=== PATIENT | female | born 1975 | race Two or more races ===

== ENCOUNTER 2020-03-27 20:43 | Emergency (ER) | payer OTHER ==
[~2020-03-27] VITALS: Ht 160 cm; Wt 82.6 kg
[2020-03-27 21:56] VITALS: BP 132/94
== END 2020-03-28 00:34 | disposition left against medical advice (07) ==
LOC: ER 20:43
DX: J02.9 Acute pharyngitis, unspecified (principal); R13.10 Dysphagia, unspecified